=== PATIENT | male | born 1985 | race African-American/Black ===

== ENCOUNTER 2019-05-27 21:13 | Emergency (ER) | payer MEDICARE, MEDICAID ==
[2019-05-27 22:01] LABS: % BASOPHILS 0.3 % (0.0-2.0); % EOSINOPHILS 4.6 % (0.0-5.0); % LYMPHOCYTES 32.5 % (20.0-50.0); % MONOCYTES 8.3 % (2.0-10.0); % NEUTROPHILS 54.3 % (40.0-80.0); EOSINOPHILE ABSOLUTE 0.4 Th/cmm (0.1-0.4); HEMATOCRIT 37.1 % (41.0-60); HEMOGLOBIN 12.6 gm/dL (12-16); LYMPHOCYTE ABSOLUTE 2.6 Th/cmm (1.5-3.0); MEAN CELL VOLUME 88.4 fl (80-99); MEAN CORPUSCULAR HGB CONC 33.9 pg (28.0-36.0); MONOCYTE ABSOLUTE 0.7 Th/cmm (0.3-1.0); NEUTROPHILE ABSOLUTE 4.2 Th/cmm (1.8-8.0); PLATELET COUNT 158 Th/cmm (150-400); RED CELL DISTRIBUTION WIDTH 11.8 % (11.5-20.0); WHITE BLOOD COUNT 7.9 Th/cmm (4.8-10.8)
[2019-05-27 22:16] LABS: ANION GAP 9.6 (7.0-16.0); BUN - UREA NITROGEN 21 mg/dL (7-25); CALCIUM SERUM 8.8 mg/dL (8.6-10.3); CARBON DIOXIDE 25.8 mEq/L (21.0-31.0); CHLORIDE 101 mEq/L (98-107); CREATININE KINASE 217 U/L (30-223); GFR AFRICAN-AMERICAN > 60.0 ml/min (>90); GFR NON AFRICAN-AMERICAN > 60.0 ml/min; GLUCOSE 103 mg/dL (70-105); POTASSIUM SERUM 3.4 mEq/L (3.5-5.1); SODIUM SERUM 133 mEq/L (136-145)
--- NOTE | 2019-05-27 22:36 | ED Physician Chart ---
ED Chief Complaint/HPI - Patient Information Date Seen:: 05/27/19 Time Seen:: 22:33 Chief Complaint:: psychosis agitation History of Present Illness:: 33 yr old man with strong hx of paranoid schizophrenia bipolar disorder here with agitation disorder Allergies:: Allergies Allergy/AdvReac Type Severity Reaction Status Date / Time No Known Drug Allergies Allergy Verified 05/27/19 21:30 Vitals:: Vital Signs - 8 hr 05/27/19 21:32 Temp 98.4 F HR 80 RR 18 BP 134/78 O2 Sat % 98 ED Review of Systems - Review of Systems General/Constitutional: No fever Skin: No skin lesions Head: No headache Eyes: No loss of vision ENT: No earache Neck: No neck pain Cardio Vascular: No chest pain Pulmonary: No SOB GI: No vomiting G/U: Other (scrotal mass) Musculoskeletal: Bone or joint pain Endocrine: No polyuria Psychiatric: Prior psych history Hematopoietic: No bruising Allergic/Immuno: No urticaria Neurological: No syncope Family Medical History - Family Member Mother Hx Family Diabetes: Yes ED Labs/Radiology/EKG Results - Lab Results Results: Laboratory Tests 05/27/19 05/27/19 21:50 21:50 WBC 7.9 RBC 4.20 L Hgb 12.6 Hct 37.1 L MCV 88.4 MCH 30.0 MCHC Differential 33.9 RDW 11.8 Plt Count 158 MPV 7.9 Neutrophils % 54.3 Lymphocytes % 32.5 Monocytes % 8.3 Eosinophils % 4.6 Basophils % 0.3 Sodium 133 L Potassium 3.4 L Chloride 101 Carbon Dioxide 25.8 Anion Gap 9.6 BUN 21 Creatinine 1.0 Est GFR ( Amer) > 60.0 Est GFR (Non-Af Amer) > 60.0 BUN/Creatinine Ratio 21.0 Glucose 103 Calcium 8.8 Creatine Kinase 217 ED Septic Shock - . Is Septic Shock (SBP<90, OR Lactate>4 mmol\L) present?: No - <6hrs of presentation: Vital Signs: Vital Signs - 8 hr 05/27/19 21:32 Temp 98.4 F HR 80 RR 18 BP 134/78 O2 Sat % 98 ED Reassessment (Disposition) - Reassessment Reassessment:: psychosis agitation - Patient Disposition Condition at Disposition:: Stable
[2019-05-27 22:54] LABS: ALB/GLOB RATIO 1.4 (1.0-1.8); ALBUMIN 3.5 gm/dL (4.2-5.5); ALKALINE PHOSPHATASE 119 U/L (34-104); BILIRUBIN,TOTAL 0.5 mg/dL (0.3-1.0); SGOT 29 U/L (13-39); SGPT/ALT 36 U/L (7-52); TOTAL PROTEIN,SERUM 6.1 gm/dL (6.0-8.3)
== END 2019-05-28 00:16 | disposition home or self-care (01) ==
LOC: ER 21:13
DX: F29 Unspecified psychosis not due to a substance or known physiological condition (principal); R45.1 Restlessness and agitation
CPT/HCPCS: 36415-UA; 80053-TC; 80320-TC; 82550-TC; 84443-TC; 84484-TC; 85025-TC; 93005